=== PATIENT | male | born 1995 | race Caucasian/White ===

== ENCOUNTER 2017-12-14 20:25 | Inpatient (IN) | payer OTHER ==
[2017-12-14 21:29] LABS: HEMATOCRIT 46.9 % (42.0-52.0); MEAN CORPUSCULAR HEMOGLOBIN 31.1 pg (27.0-33.0); MEAN CORPUSCULAR HGB CONC 34.1 g/dl (32.0-36.5); MEAN CORPUSCULAR VOLUME 91.2 fl (80.0-96.0); PLATELET COUNT, AUTOMATED 252 10^3/uL (150-450); RED BLOOD COUNT 5.14 10^6/uL (4.30-6.10); RED CELL DISTRIBUTION WIDTH 12.6 % (11.5-14.5); WHITE BLOOD COUNT 9.5 10^3/uL (4.0-10.0)
[2017-12-14 22:06] LABS: AMPHETAMINES LEVEL URINE NEGATIVE (NEGATIVE); BARBITURATES URINE NEGATIVE (NEGATIVE); BENZODIAZEPINES URINE NEGATIVE (NEGATIVE); CANNABINOIDS URINE NEGATIVE (NEGATIVE); COCAINE METABOLITE URINE NEGATIVE (NEGATIVE); METHADONE URINE NEGATIVE (NEGATIVE); OPIATES URINE NEGATIVE (NEGATIVE); PHENCYCLIDINE URINE NEGATIVE (NEGATIVE)
[2017-12-14 22:18] LABS: ACETAMINOPHEN LEVEL < 2.0 UG/ML (10.0-30.0); ALBUMIN 4.7 GM/DL (3.2-5.2); ALBUMIN/GLOBULIN RATIO 1.34 (1.00-1.93); ALKALINE PHOSPHATASE 81 U/L (45-117); ALT/SGPT 38 U/L (12-78); ANION GAP 9 MEQ/L (8-16); AST/SGOT 24 U/L (7-37); BILIRUBIN,DIRECT 0.1 MG/DL (0.0-0.2); BILIRUBIN,TOTAL 0.5 MG/DL (0.2-1.0); BLOOD UREA NITROGEN 7 MG/DL (7-18); CARBON DIOXIDE LEVEL 27 MEQ/L (21-32); CHLORIDE LEVEL 104 MEQ/L (98-107); CREATININE FOR GFR 1.17 MG/DL (0.70-1.30); GLUCOSE, FASTING 92 MG/DL (70-100); POTASSIUM SERUM 3.7 MEQ/L (3.5-5.1); SALICYLATE LEVEL < 1.7 MG/DL (5.0-30.0); SODIUM LEVEL 140 MEQ/L (136-145); TOTAL PROTEIN 8.2 GM/DL (6.4-8.2)
[2017-12-15] MEDS ORDERED: MAALOX 30 ML SUSP *UDC PO (01:45)
[2017-12-15] MEDS ORDERED: MOM 30ML SUSPENSION UDC PO (01:45)
[2017-12-15] MEDS ORDERED: ACETAMINOPHEN TAB 650MG DOSE (2X325MG) PO (01:45)
[2017-12-15 02:13] LABS: APPEARANCE, URINE CLEAR (CLEAR); BACTERIA, URINE AUTO NEGATIVE (NEGATIVE); BILIRUBIN, URINE AUTO NEGATIVE (NEGATIVE); BLOOD, URINE BLOOD NEGATIVE (NEGATIVE); COLOR, URINE STRAW (YELLOW); GLUCOSE, URINE (UA) AUTO NEGATIVE (NEGATIVE); KETONE, URINE AUTO NEGATIVE (NEGATIVE); LEUKOCYTE ESTERASE, URINE AUTO NEGATIVE (NEGATIVE); NITRITE, URINE AUTO NEGATIVE (NEGATIVE); PROTEIN, URINE AUTO NEGATIVE (NEGATIVE); RBC, URINE AUTO 0 /HPF (0-3); SPECIFIC GRAVITY URINE AUTO 1.003 (1.002-1.035); SQUAMOUS EPITHELIAL CELL UR AU 0 /HPF (0-6); UROBILINOGEN, URINE AUTO 0.2 mg/dL (0.0-2.0); WBC, URINE AUTO 0 /HPF (0-3)
[2017-12-16] MEDS: buPROPion 75 MG TAB PO (14:44)
[2017-12-16] MEDS: traZODone 50 MG TAB PO (21:40)
[2017-12-17] MEDS: buPROPion 75 MG TAB PO (09:03)
[2017-12-17] MEDS: OLANZapine ORAL DISINTEGRATING TAB 5MG PO (21:36)
[2017-12-18] MEDS: buPROPion 75 MG TAB PO (08:03)
[2017-12-18] MEDS: OLANZapine ORAL DISINTEGRATING TAB 5MG PO (21:17)
[2017-12-19] MEDS: buPROPion 75 MG TAB PO (08:21)
[2017-12-20] MEDS: buPROPion 75 MG TAB PO (08:01)
[2017-12-20] MEDS: OLANZapine ORAL DISINTEGRATING TAB 5MG PO ×2 (09:21→20:50)
[2017-12-20] MEDS: RAMELTEON 8 MG TAB (ROZEREM) PO (20:50)
[2017-12-21] MEDS: buPROPion 75 MG TAB PO (08:24)
== END 2017-12-21 13:24 | disposition home or self-care (01) | DRG 881 ==
LOC: M ED INP 12-15 01:35 → M ED 20:25 → M PSY 12-15 02:29
DX: F34.1 Dysthymic disorder (principal); F10.10 Alcohol abuse, uncomplicated; Z91.5 Personal history of self-harm; F17.220 Nicotine dependence, chewing tobacco, uncomplicated; S51.812A Laceration without foreign body of left forearm, initial encounter; X78.1XXA Intentional self-harm by knife, initial encounter; Y92.138 Other place on military base as the place of occurrence of the external cause; Y93.89 Activity, other specified

== ENCOUNTER 2018-06-30 13:44 | Emergency (ER) | payer OTHER ==
[~2018-06-30] VITALS: Ht 162.6 cm; Wt 77.3 kg
[~2018-06-30 13:44] MED LIST: BUPR75TA5 PO; ROZE8TAB16 PO
[2018-06-30] MEDS ORDERED: DERMABOND TOPICAL SKIN ADHESIVE TOP ONE (14:00)
[2018-06-30 15:20] VITALS: BP 142/78
== END 2018-06-30 15:36 | disposition home or self-care (01) ==
LOC: M ED 13:44
DX: S51.812A Laceration without foreign body of left forearm, initial encounter (principal); X78.9XXA Intentional self-harm by unspecified sharp object, initial encounter; Y92.89 Other specified places as the place of occurrence of the external cause; F99 Mental disorder, not otherwise specified; Z79.899 Other long term (current) drug therapy